=== PATIENT | male | born 1960 | race Caucasian/White ===

== ENCOUNTER 2018-07-09 21:27 | Emergency (ER) | payer SELFPAY ==
[~2018-07-09] VITALS: Ht 172.7 cm; Wt 65.8 kg
[2018-07-09] MEDS ORDERED: LIDOCAINE 2% 20 ML VIAL. IJ ONE (21:45)
[2018-07-09] MEDS ORDERED: DIPHTH,PERTUSS(ACELL),TET TOX 0.5 ML DISP.SYRIN. VAX IM ONE (21:45)
[2018-07-09] MEDS ORDERED: LIDOCAINE 1% Multi-Dose 20 ML VIAL. ONE (21:52)
--- NOTE | 2018-07-09 23:04 | PHYS DOC ---
Past History Past Medical History: Anxiety, Hypertension, Seizure Additional Smoking Information: 1.5 ppd Alcohol Use: Occasionally Drug Use: Benzodiazepine Adult General Chief Complaint Chief Complaint: LACERATION/AVULSION HPI HPI Patient is a 57 year old male who presents with complaint of laceration to the right hand. Patient states that he was trying to cut off a plastic cap of a mouth wash bottle when the knife accidentally went across the second and third knuckles of the right hand. Patient states he is able to move all of his fingers normally but states that he is able to see what looks like a tendon in the wound bed over his index finger. Patient does not remember his last tetanus shot. Patient denies any other injuries. Wound was washed at home. Due to the extent of the wound the patient came to the emergency department to have it evaluated and likely repaired. Review of Systems Review of Systems Constitutional: Denies fever or chills [] Eyes: Denies change in visual acuity, redness, or eye pain [] HENT: Denies nasal congestion or sore throat [] Respiratory: Denies cough or shortness of breath [] Cardiovascular: Denies chest pain or edema[] GI: Denies abdominal pain, nausea, vomiting, bloody stools or diarrhea [] : Denies dysuria or hematuria [] Musculoskeletal: Laceration to right hand[] Integument: Denies rash or skin lesions [] Neurologic: Denies headache, focal weakness or sensory changes [] All other systems were reviewed and found to be within normal limits, except as documented in this note. Current Medications Current Medications Current Medications Medications (Trade) Dose Ordered Sig/Max Start Time Stop Time Status Last Admin Dose Admin Diphtheria/ Tetanus/Acell Pertussis (Boostrix) 0.5 ml ONCE ONCE 07/09/18 21:45 07/09/18 22:37 DC 07/09/18 22:03 0.5 ML Lidocaine HCl 20 ml STK-MED ONCE 07/09/18 21:52 07/09/18 21:53 DC Allergies Allergies Allergies Coded Allergies Type Severity Reaction Last Updated Verified Unable to Assess 07/09/18 No Physical Exam Physical Exam Constitutional: Well developed, well nourished, no acute distress, non-toxic appearance. [] HENT: Normocephalic, atraumatic, bilateral external ears normal, oropharynx moist, no oral exudates, nose normal. [] Eyes: PERRLA, EOMI, conjunctiva normal, no discharge. [] Neck: Normal range of motion, no tenderness, supple, no stridor. [] Cardiovascular:Heart rate regular rhythm, no murmur [] Lungs & Thorax: Bilateral breath sounds clear to auscultation [] Abdomen: Bowel sounds normal, soft, no tenderness, no masses, no pulsatile masses. [] Skin: Warm, dry, 8 cm laceration across the dorsum of the second and third MCP joints, visualized extensor tendon along right index finger with a partial transection transversely overlying the second MCP, range of motion of index finger intact. [] Back: No tenderness, no CVA tenderness. [] Extremities: No tenderness, no cyanosis, no clubbing, ROM intact, no edema. [] Neurologic: Alert and oriented X 3, normal motor function, normal sensory function, no focal deficits noted. [] Current Patient Data Vital Signs Vital Signs Date Time Temp Pulse Resp B/P (MAP) Pulse Ox O2 Delivery O2 Flow Rate FiO2 07/09/18 21:35 97.6 58 16 99 Room Air 07/09/18 21:35 126/74 (91) Lab Results Not performed EKG EKG Not performed[] Radiology/Procedures Radiology/Procedures Indication: Right hand laceration Procedure: The patient was placed in the appropriate position and anesthesia around the laceration was achieved with injection of lidocaine 1%. The area was then cleansed with chlorhexidine wash and sterile water. The the subcutaneous tissue was closed using one simple interrupted 6-0 Vicryl stitch. The skin layer was then closed using 8 simple interrupted 4-0 Ethilon sutures. The wound area was then dressed with Telfa. The right index finger was immobilized with an aluminum splint. Total repaired wound length: 8 cm. Other Items: Total suture count: 9 The patient tolerated the procedure without difficulty. Complications: None.[] Course & Med Decision Making Course & Med Decision Making Pertinent Labs and Imaging studies reviewed. (See chart for details) Patient's laceration was repaired as outlined in the procedure note. Due to a partial transection of the right extensor tendon of the index finger, the patient was placed in an aluminum splint to keep the finger immobilized. Advised patient to follow-up with Dr. Dunn, hand surgeon who holds clinic at the office of Dr. Saldana, for follow-up in the next 1-2 weeks for reevaluation. Advised patient to keep the index finger immobilized until he has followed up with Dr. Dunn. Recommended return to the emergency department for any worsening symptoms. Patient was understanding and agreement with treatment plan. Dragon Disclaimer Dragon Disclaimer This electronic medical record was generated, in whole or in part, using a voice recognition dictation system. Departure Departure: Impression: Primary Impression: Hand laceration involving tendon Disposition: HOME, SELF-CARE Condition: IMPROVED Referrals: PCP,ANGELA (PCP) CH[place] SALDANA MD Patient Instructions: Laceration Care, Adult, Tendon Injury Additional Instructions: You suffered a small cut to the extensor tendon in your index finger as a result of your laceration. This will likely not need surgical intervention but will need to be immobilized over the course of the next 2 weeks. You will need to call the office of Dr. Saldana and request an appointment with Dr. Dunn, an hand specialist who sees patients and Dr. Saldana's clinic. Please schedule a follow-up appointment in the next 5-7 days. Return to the emergency department for any worsening symptoms. Problem Qualifiers Primary Impression: Hand laceration involving tendon Encounter type: initial encounter Laterality: right Qualified Codes: S61.411A - Laceration without foreign body of right hand, initial encounter; S66.921A - Laceration of unspecified muscle, fascia and tendon at wrist and hand level, right hand, initial encounter GLENDA GARCIA MD Jul 09, 2018 23:04
[2018-07-09 23:30] VITALS: BP 97/58
== END 2018-07-09 23:30 | disposition home or self-care (01) ==
LOC: ER 21:27
DX: S61.411A Laceration without foreign body of right hand, initial encounter (principal); F17.200 Nicotine dependence, unspecified, uncomplicated; I10 Essential (primary) hypertension; W26.0XXA Contact with knife, initial encounter; Y93.89 Activity, other specified; Y92.89 Other specified places as the place of occurrence of the external cause; Y99.8 Other external cause status
CPT/HCPCS: 12044; 90471; 90715; 99283-25; 99284-25; J2001